=== PATIENT | female | born 1970 | race Caucasian/White ===

== ENCOUNTER 2019-06-20 17:28 | Outpatient (CLI) | payer BC | END 2019-06-20 17:29 | disposition critical access hospital (66) | LOC: EMS 17:28 | PROVIDERS: ATTEND Surgery | DX: R51 Headache (principal); R11.0 Nausea; R42 Dizziness and giddiness | CPT/HCPCS: A0425; A0429 ==

== ENCOUNTER 2019-06-20 17:53 | Emergency (ER) | payer BC ==
[2019-06-20] MEDS ORDERED: diphenhydrAMINE INJ 50 MG/ML VIAL IVP STA (18:00)
[2019-06-20] MEDS ORDERED: METOCLOPRAMIDE 10 MG/2 ML VIAL IVP STA (18:00)
--- NOTE | 2019-06-20 18:02 | ED Physician Documentation ---
PD HPI HEADACHE - Stated complaint Stated Complaint: GILMAN/NAUSEA/ DIZZY - History obtained from History obtained from: Patient - History of Present Illness Timing - onset: Today (48-year-old woman with history of TBI and migraines presents with a sudden onset frontal headache that started about an hour and a half ago while working at home. It is more severe than most of her headaches but not necessarily the worst headache of her life. She is nauseous and very anxious. She tried some Valium at home which was ineffective. She is been on amoxicillin for about 5 days for a dental infection. No fevers. No neck stiffness.) Review of Systems Ten Systems: 10 systems reviewed and negative Constitutional: denies: Fever, Chills Cardiac: denies: Chest pain / pressure, Palpitations Respiratory: denies: Dyspnea, Cough PD PAST MEDICAL HISTORY - Allergies Allergies/Adverse Reactions: Allergies Allergy/AdvReac Type Severity Reaction Status Date / Time clindamycin Allergy Unknown Verified 06/20/19 18:06 iodine Allergy Hives Verified 06/20/19 18:06 seafood Allergy Hives Uncoded 06/20/19 18:06 PD ED PE NORMAL - Vitals Vital signs reviewed: Yes - General General: Alert and oriented X 3, Other (She is crying and anxious and tearful) - HEENT HEENT: PERRL, EOMI - Neck Neck: Supple, no meningeal sign, No bony TTP - Cardiac Cardiac: RRR, No murmur - Respiratory Respiratory: No respiratory distress, Clear bilaterally - Abdomen Abdomen: Non tender - Back Back: No CVA TTP, No spinal TTP - Derm Derm: Normal color, Warm and dry - Extremities Extremities: No edema, No calf tenderness / cord - Neuro Neuro: Alert and oriented X 3, No motor deficit, No sensory deficit, Normal speech Results - Vitals Vitals: Vital Signs - 24 hr 06/20/19 17:59 Heart Rate 99 Respiratory 20 Rate Blood Pressure 142/120 H O2 Saturation 96 Oxygen O2 Source Room air - Labs Labs: Laboratory Tests 06/20/19 06/20/19 06/20/19 18:07 18:41 18:41 WBC 6.2 RBC 3.50 L Hgb 11.6 L Hct 33.9 L MCV 96.9 MCH 33.1 H MCHC 34.2 RDW 12.2 Plt Count 220 MPV 8.5 Neut # (Auto) 4.3 Lymph # (Auto) 1.3 L Bowie # (Auto) 0.5 Eos # (Auto) 0.1 Baso # (Auto) 0.1 Absolute Nucleated RBC 0.00 Nucleated RBC % 0.0 PT 12.4 INR 1.1 Sodium Potassium Chloride Carbon Dioxide Anion Gap BUN Creatinine Estimated GFR (MDRD) Glucose Calcium Total Bilirubin AST ALT Alkaline Phosphatase Total Protein Albumin Globulin Albumin/Globulin Ratio Lipase Urine Opiates Screen NEGATIVE Ur Oxycodone Screen NEGATIVE Urine Methadone Screen NEGATIVE Ur Propoxyphene Screen NEGATIVE Ur Barbiturates Screen NEGATIVE Ur Tricyclics Screen NEGATIVE Ur Phencyclidine Scrn NEGATIVE Ur Amphetamine Screen NEGATIVE U Methamphetamines Scrn NEGATIVE U Benzodiazepines Scrn POSITIVE H Urine Cocaine Screen NEGATIVE U Cannabinoids Screen POSITIVE H Ethyl Alcohol 06/20/19 18:41 WBC RBC Hgb Hct MCV MCH MCHC RDW Plt Count MPV Neut # (Auto) Lymph # (Auto) Bowie # (Auto) Eos # (Auto) Baso # (Auto) Absolute Nucleated RBC Nucleated RBC % PT INR Sodium 133 L Potassium 3.7 Chloride 99 L Carbon Dioxide 21 Anion Gap 13.0 BUN 10 Creatinine 0.8 Estimated GFR (MDRD) 77 L Glucose 100 Calcium 8.9 Total Bilirubin 0.5 AST 20 ALT 16 Alkaline Phosphatase 29 L Total Protein 6.5 L Albumin 3.7 Globulin 2.8 Albumin/Globulin Ratio 1.3 Lipase 33 Urine Opiates Screen Ur Oxycodone Screen Urine Methadone Screen Ur Propoxyphene Screen Ur Barbiturates Screen Ur Tricyclics Screen Ur Phencyclidine Scrn Ur Amphetamine Screen U Methamphetamines Scrn U Benzodiazepines Scrn Urine Cocaine Screen U Cannabinoids Screen Ethyl Alcohol < 5.0 PD MEDICAL DECISION MAKING - ED course ED course: 48-year-old woman presents with an acute severe headache, she does have a history of migraines. Started while painting and she thinks it may have been due to the fumes. She is also having a panic attack. After the administration of Benadryl and Reglan she was better with only minimal residual pain. Her head CT was negative. Her examination remained normal. Occult subarachnoid was considered but very unlikely at that juncture given the clinical circumstances. Departure - Departure Disposition: 01 Home, Self Care Clinical Impression: Migraine Qualifiers: Migraine type: without aura Status migrainosus presence: with status migrainosus Intractability: not intractable Qualified Code(s): G43.001 - Migraine without aura, not intractable, with status migrainosus Condition: Good Record reviewed to determine appropriate education?: Yes Instructions: ED Headache Migraine Comments: Return for any worsening symptoms, follow-up with your doctor regardless. Recheck blood pressure with your doctor, it is normal to go up with significant pain or anxiety so it is not too worrisome but should be rechecked when you are in your usual state of health.
[2019-06-20 18:19] LABS: MUDS CUTOFF CONCENTRATIONS CUTOFF CONC BELOW:
[2019-06-20 18:32] LABS: AMPHETAMINE SCREEN,URINE NEGATIVE (NEGATIVE); BENZODIAZEPINES SCREEN, URINE POSITIVE (NEGATIVE); COCAINE SCREEN URINE NEGATIVE (NEGATIVE); METHADONE SCREEN, URINE NEGATIVE (NEGATIVE); METHAMPHETAMINES SCREEN, URINE NEGATIVE (NEGATIVE); OPIATE SCREEN, URINE NEGATIVE (NEGATIVE); OXYCODONE SCREEN, URINE NEGATIVE (NEGATIVE); PROPOXYPHENE SCREEN, URINE NEGATIVE (NEGATIVE); TRICYCLIC ANTIDEPRESSANT,URINE NEGATIVE (NEGATIVE)
--- NOTE | 2019-06-20 18:41 | CT Report ---
Reason: headache Procedure Date: 06/20/2019 Accession Number: [id number] / [id number] Procedure: CT - HEAD WO CPT Code: FULL RESULT: EXAM: CT HEAD EXAM DATE: 06/20/2019 06:15 PM. CLINICAL HISTORY: Headache. COMPARISON: None. TECHNIQUE: Multiaxial CT images were obtained from the foramen magnum to the vertex. Reformats: Sagittal and coronal. IV contrast: None. In accordance with CT protocol optimization, one or more of the following dose reduction techniques were utilized for this exam: automated exposure control, adjustment of mA and/or KV based on patient size, or use of iterative reconstructive technique. FINDINGS: Parenchyma: No intraparenchymal hemorrhage. No evidence of mass, midline shift, or CT findings of infarction. Mo-white differentiation is distinct. Extraaxial Spaces: Normal for age. No subdural or epidural collections identified. Ventricles: Normal in size and position. Sinuses and Orbits: Imaged paranasal sinuses, orbits, and mastoids show no significant abnormality. Bones: No evidence of fracture or calvarial defect. Other: None. IMPRESSION: 1. Negative for an acute or focal intracranial abnormality. RADIA
[2019-06-20 18:48] LABS: BASOPHILS # (AUTO) 0.1 10^3/uL (0.0-0.1); BASOPHILS % (AUTO) 0.8 %; EOSINOPHILS # (AUTO) 0.1 10^3/uL (0.0-0.7); EOSINOPHILS % (AUTO) 1.1 %; HGB - HEMOGLOBIN 11.6 g/dL (12.0-16.0); LYMPHOCYTES # (AUTO) 1.3 10^3/uL (1.5-3.5); LYMPHOCYTES % (AUTO) 21.3 %; MEAN CORPUSCULAR HEMOGLOBIN 33.1 pg (27.0-31.0); MEAN CORPUSCULAR HGB CONC 34.2 g/dL (32.0-36.0); MEAN CORPUSCULAR VOLUME 96.9 fL (81.0-99.0); MEAN PLATELET VOLUME 8.5 fL (7.9-10.8); MONOCYTES # (AUTO) 0.5 10^3/uL (0.0-1.0); MONOCYTES % (AUTO) 7.4 %; NEUTROPHILS # (AUTO) 4.3 10^3/uL (1.5-6.6); NEUTROPHILS % (AUTO) 69.1 %; PLT - PLATELET COUNT 220 10^3/uL (130-450); RED CELL DISTRIBUTION WIDTH 12.2 % (12.0-15.0); WHITE BLOOD COUNT 6.2 x10^3/uL (4.8-10.8)
[2019-06-20 19:02] LABS: INR 1.1 (0.8-1.2); PT - PROTHROMBIN TIME 12.4 secs (9.9-12.6)
[2019-06-20 19:12] LABS: ALBUMIN 3.7 g/dL (3.2-5.5); ALBUMIN/GLOBULIN RATIO 1.3 (1.0-2.2); ALKALINE PHOSPHATASE 29 IU/L (42-121); ALT ALANINE AMINOTRANSFERASE 16 IU/L (10-60); AST ASPARTATE AMINOTRANSFERASE 20 IU/L (10-42); BILIRUBIN,TOTAL 0.5 mg/dL (0.2-1.0); BUN - BLOOD UREA NITROGEN 10 mg/dL (6-20); CALCIUM 8.9 mg/dL (8.5-10.3); CARBON DIOXIDE - CO2 21 mmol/L (21-32); CHLORIDE 99 mmol/L (101-111); CREATININE 0.8 mg/dL (0.4-1.0); GFR - MDRD 77 (>89); GLUCOSE 100 mg/dL (70-100); LIPASE 33 U/L (22-51); SODIUM 133 mmol/L (135-145); TOTAL PROTEIN 6.5 g/dL (6.7-8.2)
[2019-06-20 20:05] VITALS: BP 138/96
== END 2019-06-20 20:00 | disposition home or self-care (01) ==
LOC: ED 17:53
DX: G43.001 Migraine without aura, not intractable, with status migrainosus (principal); F41.0 Panic disorder [episodic paroxysmal anxiety]; Z87.820 Personal history of traumatic brain injury
CPT/HCPCS: 36415; 70450; 80053; 80320; 83690; 85025; 85610; 96374; 99284; J1200; J2765; 80306

== ENCOUNTER 2020-01-31 20:41 | Outpatient (CLI) | payer BC | END 2020-01-31 20:42 | disposition home or self-care (01) | LOC: COV 20:41 | PROVIDERS: ATTEND Family Medicine | DX: R50.9 Fever, unspecified (principal) ==

== ENCOUNTER 2020-09-29 08:00 | Outpatient (CLI) | payer BC ==
[2020-09-29 14:39] LABS: BASOPHILS % (AUTO) 0.6 %; EOSINOPHILS # (AUTO) 0.1 10^3/uL (0.0-0.7); EOSINOPHILS % (AUTO) 1.6 %; HGB - HEMOGLOBIN 14.4 g/dL (12.0-16.0); LYMPHOCYTES # (AUTO) 1.6 10^3/uL (1.5-3.5); LYMPHOCYTES % (AUTO) 24.3 %; MEAN CORPUSCULAR HEMOGLOBIN 34.3 pg (27.0-31.0); MEAN CORPUSCULAR HGB CONC 33.6 g/dL (32.0-36.0); MEAN CORPUSCULAR VOLUME 101.9 fL (81.0-99.0); MEAN PLATELET VOLUME 9.5 fL (7.9-10.8); MONOCYTES # (AUTO) 0.5 10^3/uL (0.0-1.0); MONOCYTES % (AUTO) 7.6 %; NEUTROPHILS # (AUTO) 4.2 10^3/uL (1.5-6.6); NEUTROPHILS % (AUTO) 65.6 %; PLT - PLATELET COUNT 274 10^3/uL (130-450); RED CELL DISTRIBUTION WIDTH 12.4 % (12.0-15.0); WHITE BLOOD COUNT 6.4 x10^3/uL (4.8-10.8)
[2020-09-29 15:26] LABS: % IRON SATURATION 23 % (20-50); ALBUMIN 4.2 g/dL (3.2-5.5); ALBUMIN/GLOBULIN RATIO 1.3 (1.0-2.2); ALKALINE PHOSPHATASE 40 IU/L (42-121); ALT ALANINE AMINOTRANSFERASE 19 IU/L (10-60); AST ASPARTATE AMINOTRANSFERASE 21 IU/L (10-42); BILIRUBIN,TOTAL 0.6 mg/dL (0.2-1.0); BUN - BLOOD UREA NITROGEN 15 mg/dL (6-20); CALCIUM 9.3 mg/dL (8.5-10.3); CARBON DIOXIDE - CO2 24 mmol/L (21-32); CHLORIDE 105 mmol/L (101-111); CHOL/HDL RATIO 3.4 (<4.4); CHOLESTEROL 176 mg/dL; CREATININE 0.8 mg/dL (0.4-1.0); GLUCOSE 103 mg/dL (70-100); HDL CHOLESTEROL 52 mg/dL; IRON 93 ug/dL (28-170); LDL CHOLESTEROL,CALCULATED 71 mg/dL; LDL/HDL RATIO 1.4 (<4.4); SODIUM 137 mmol/L (135-145); TOTAL IRON BINDING CAPACITY 398 ug/dL (250-450); TOTAL PROTEIN 7.5 g/dL (6.7-8.2); TRANSFERRIN 284 mg/dL (192-382); VLDL CHOLESTEROL 53 mg/dL
== END 2020-09-29 08:01 | disposition home or self-care (01) ==
LOC: LAB.S 08:00
PROVIDERS: ATTEND Registered Nurse
DX: G25.81 Restless legs syndrome (principal); F17.200 Nicotine dependence, unspecified, uncomplicated; Z78.0 Asymptomatic menopausal state; R53.83 Other fatigue; N94.3 Premenstrual tension syndrome
CPT/HCPCS: 36415; 80053; 80061; 82306; 82728; 83540; 83721; 84443; 84466; 85025

== ENCOUNTER 2020-12-31 08:52 | Outpatient (CLI) | payer BC ==
[2020-12-31 15:20] LABS: CHOLESTEROL 227 mg/dL; GLUCOSE,FASTING 111 mg/dL (70-100); HDL CHOLESTEROL 57 mg/dL; LDL CHOLESTEROL,CALCULATED 136 mg/dL; LDL/HDL RATIO 2.4 (<4.4); VLDL CHOLESTEROL 34 mg/dL
[2020-12-31 20:34] LABS: HEMOGLOBIN A1c% 5.7 % (4.27-6.07)
== END 2020-12-31 08:53 | disposition home or self-care (01) ==
LOC: LAB.S 08:52
PROVIDERS: ATTEND Obstetrics & Gynecology
DX: E78.5 Hyperlipidemia, unspecified (principal); R73.9 Hyperglycemia, unspecified; R79.9 Abnormal finding of blood chemistry, unspecified
CPT/HCPCS: 36415; 80061; 82607; 82746; 82947; 83036; 83721

== ENCOUNTER 2021-02-21 13:12 | Outpatient (CLI) | payer BC ==
--- NOTE | 2021-02-22 12:11 | Mammography Report ---
BILATERAL DIGITAL SCREENING MAMMOGRAM 3D/2D: 02/21/2021 CLINICAL: Family history of breast cancer. Comparison is made to exams dated: 05/03/2017 mammogram, 09/13/2018 mammogram, and 03/24/2016 mammogram - [facility]. There are scattered fibroglandular elements in both breasts. No significant masses, calcifications, or other findings are seen in either breast. There has been no significant interval change. IMPRESSION: NEGATIVE There is no mammographic evidence of malignancy. A 1 year screening mammogram is recommended. This exam was interpreted at Station ID: [id number]. NOTE: For mammograms, a report in lay terms will be sent to the patient. Approximately 15% of breast malignancies will not be visualized mammographically. In the management of a palpable breast mass, a negative mammogram must not discourage biopsy of a clinically suspicious lesion. Electronically Signed By: Vitaly Ramirez M.D. ar/penrad:02/22/2021 08:51:01 ACR BI-RADS Category 1: Negative 3341F PARENCHYMAL PATTERN: (A) - The breast(s) demonstrate(s) scattered fibroglandular densities. BI-RADS CATEGORY: (1) - 1 RECOMMENDATION: (ANNUAL) - Recommend routine annual screening mammography. [id number] 1 year screening LATERALITY: (B)
== END 2021-02-21 13:13 | disposition home or self-care (01) ==
LOC: DI.S 13:12
DX: Z12.31 Encounter for screening mammogram for malignant neoplasm of breast (principal); Z80.3 Family history of malignant neoplasm of breast

== ENCOUNTER 2021-03-11 08:00 | Outpatient (CLI) | payer BC ==
--- NOTE | 2021-03-11 16:46 | XRAY Report ---
PROCEDURE: Chest 2 View X-Ray INDICATIONS: HEMOPTYSIS/CONTINUOUS TABACCO ABUSE TECHNIQUE: 2 view(s) of the chest. COMPARISON: None. FINDINGS: Surgical changes and devices: None. Lungs and pleura: No pleural effusions or pneumothorax. Lungs are abnormal with pulmonary hyperexpa nsion, and yet no definite mass lesion or evidence of pneumonia is seen. It is noted that at the dist al first rib on the left there is asymmetric increased radiodensity than that on the right, which can be produced by differences in degenerative change but also a superimposed lung mass could produce th is appearance. See below. Mediastinum: Mediastinal contours are normal. Heart size is normal. Bones and chest wall: No suspicious bony abnormalities. Soft tissues appear unremarkable. IMPRESSION: Large lung volumes, suspect COPD. No lung mass or pneumonia found. Please note that ther e is asymmetric density overlying the distal first rib on the left, potentially a manifestation of a lung mass superimposed but most frequently this represents degenerative change. Given the history of hemoptysis and the potential for endobronchial mass as the underlying cause follow-up by noncontrast CT scanning likely is warranted in the near term. Reviewed by: Jay Butterfield MD on 03/11/2021 4:45 PM PDT Approved by: Jay Butterfield MD on 03/11/2021 4:45 PM PDT Station ID: [id number]
== END 2021-03-11 23:59 | disposition home or self-care (01) ==
LOC: DI.S 08:00
PROVIDERS: ATTEND Physician Assistant Medical
DX: R04.2 Hemoptysis (principal); R09.89 Other specified symptoms and signs involving the circulatory and respiratory systems; F17.200 Nicotine dependence, unspecified, uncomplicated; R91.8 Other nonspecific abnormal finding of lung field; Z20.822 Contact with and (suspected) exposure to COVID-19

== ENCOUNTER 2021-03-20 12:43 | Outpatient (CLI) | payer BC ==
--- NOTE | 2021-03-20 21:03 | CT Report ---
PROCEDURE: CHEST WO INDICATIONS: NEOPLASM OF UNSPECIFIED BEHAVIOR OF RESP SYSTEM TECHNIQUE: Noncontrast 5 mm thick sections acquired from the pulmonary apices to the posterior costophrenic angl es. 7 mm thick coronal and sagittal MIP reformats were then acquired. For radiation dose reduction, the following was used: automated exposure control, adjustment of mA and/or kV according to patient size. COMPARISON: Chest radiographs dated 03/11/2021 FINDINGS: Image quality: Excellent. Lungs and pleura: No acute air space opacities. No pleural effusions or pneumothorax. Central and peripheral airways are patent and normal in caliber. There is predominantly apical and centrilobular emphysematous changes. Mediastinum: Heart size is normal. Mild coronary vascular calcifications most prominently within th e left anterior descending artery. No pericardial effusion. No mediastinal adenopathy by size criter ia. Thoracic aorta and central pulmonary arteries are normal in size. Esophagus is normal in calibe r. No hiatal hernia. Bones and chest wall: No suspicious bony lesions. No vertebral body compression fractures. No axil katharina or supraclavicular adenopathy by size criteria. The thyroid is normal in size. Abdomen: Visualized upper abdominal solid organs and bowel loops appear normal in the absence of con trast. Mild atherosclerotic calcifications within the aorta. IMPRESSION: No evidence of suspicious nodule or mass. Findings on comparison radiographs likely favored overlappi ng chondral calcifications. Emphysema. Coronary vascular calcifications. Reviewed by: Moose Roberts DO on 03/20/2021 8:02 PM JORDAN Approved by: Moose Roberts DO on 03/20/2021 8:02 PM JORDAN Station ID: [id number]
== END 2021-03-20 12:44 | disposition home or self-care (01) ==
LOC: DI 12:43
PROVIDERS: ATTEND Registered Nurse
DX: J43.9 Emphysema, unspecified (principal); I25.84 Coronary atherosclerosis due to calcified coronary lesion

== ENCOUNTER 2022-02-05 10:01 | Outpatient (CLI) | payer BC ==
[2022-02-05 15:50] LABS: CALCIUM 9.4 mg/dL (8.5-10.3); CREATININE 0.7 mg/dL (0.4-1.0); POTASSIUM 4.1 mmol/L (3.5-5.0)
[2022-02-05 21:37] LABS: ESTIMATED AVERAGE GLUCOSE 117 mg/dL (70-100); HEMOGLOBIN A1c% 5.7 % (4.27-6.07)
== END 2022-02-05 10:02 | disposition home or self-care (01) ==
LOC: LAB.S 10:01
PROVIDERS: ATTEND Registered Nurse
DX: R73.9 Hyperglycemia, unspecified (principal)
CPT/HCPCS: 36415; 80048; 83036

== ENCOUNTER 2022-11-25 12:27 | Outpatient (CLI) | payer BC ==
--- NOTE | 2022-11-28 10:18 | Ultrasound Report ---
LIMITED ULTRASOUND OF LEFT BREAST: 11/25/2022 CLINICAL: Itchy nipples. Comparison is made to exams dated: 11/25/2022 mammogram, 02/21/2021 mammogram - [facility], 09/13/2018 mammogram, and 05/03/2017 mammogram - [facility]. Real-time ultrasound of the left breast retroareolar was performed. Mo scale images of the real-t jenn examination were reviewed. No significant abnormalities were seen sonographically in the left breast. IMPRESSION: NEGATIVE There is no sonographic evidence of malignancy. There is no abnormality seen in the left breast to correspond with the nipple abnormality in the sub- areolar depth, however, clinical followup is recommended. A 1 year screening mammogram is recommended. This exam was interpreted at Station ID: [id number]. Electronically Signed By: Vitaly rodriguez/ewelina:11/25/2022 14:01:19 Ultrasound BI-RADS: 1 Negative BI-RADS CATEGORY: (1) - 1 RECOMMENDATION: (ANNUAL) - Recommend routine annual screening mammography. [id number] 1 year screening LATERALITY: (B)
--- NOTE | 2022-11-28 10:18 | Mammography Report ---
BILATERAL DIGITAL DIAGNOSTIC MAMMOGRAM 3D/2D: 11/25/2022 CLINICAL: Bilateral itchy nipples. Comparison is made to exams dated: [facility], [facility], and 05/03/2017 mammogram - [facility]. There are scattered areas of fibroglandular density in both breasts (category b / 25%-50% glandular t issue). No significant masses, calcifications, or other findings are seen in either breast. IMPRESSION: INCOMPLETE: NEEDS ADDITIONAL IMAGING EVALUATION There is no abnormality seen in either breast to correspond with the nipple abnormality, however, ult rasound is recommended. This exam was interpreted at Station ID: [id number]. NOTE: For mammograms, a report in lay terms will be sent to the patient. Approximately 15% of breast malignancies will not be visualized mammographically. In the management of a palpable breast mass, a negative mammogram must not discourage biopsy of a clinically suspicious lesion. Electronically Signed By: Vitaly rodriguez/ewelina:11/25/2022 13:59:48 ACR BI-RADS Category 0: Incomplete 3340F PARENCHYMAL PATTERN: (A) - The breast(s) demonstrate(s) scattered fibroglandular densities. BI-RADS CATEGORY: (0) - 0 Ultrasound [id number] Immediate follow-up LATERALITY: (B)
--- NOTE | 2022-11-28 10:19 | Ultrasound Report ---
LIMITED ULTRASOUND OF RIGHT BREAST: 11/25/2022 CLINICAL: Itchy nipples. Comparison is made to exams dated: 11/25/2022 mammogram, 02/21/2021 mammogram - [facility], 09/13/2018 mammogram, 05/03/2017 mammogram, and 03/24/2016 mammogram - [facility]. Real-time ultrasound of the right breast retroareolar was performed. Mo scale images of the real-t jenn examination were reviewed. No significant abnormalities were seen sonographically in the right breast. IMPRESSION: NEGATIVE There is no sonographic evidence of malignancy. There is no abnormality seen in the right breast to correspond with the nipple abnormality in the sub -areolar depth, however, clinical followup is recommended. A 1 year screening mammogram is recommended. This exam was interpreted at Station ID: [id number]. Electronically Signed By: Vitaly rodriguez/ewelina:11/25/2022 14:00:48 Ultrasound BI-RADS: 1 Negative BI-RADS CATEGORY: (1) - 1 RECOMMENDATION: (ANNUAL) - Recommend routine annual screening mammography. [id number] 1 year screening LATERALITY: (B)
== END 2022-11-25 12:28 | disposition home or self-care (01) ==
LOC: DI 12:27
PROVIDERS: ATTEND Nurse Practitioner Family
DX: N64.59 Other signs and symptoms in breast (principal); L29.9 Pruritus, unspecified

== ENCOUNTER 2022-12-12 10:24 | Outpatient (CLI) | payer BC ==
[2022-12-12 14:14] LABS: BASOPHILS # (AUTO) 0.1 10^3/uL (0.0-0.1); BASOPHILS % (AUTO) 1.1 %; EOSINOPHILS # (AUTO) 0.1 10^3/uL (0.0-0.7); EOSINOPHILS % (AUTO) 2.3 %; HCT - HEMATOCRIT 41.4 % (37.0-47.0); HGB - HEMOGLOBIN 13.6 g/dL (12.0-16.0); LYMPHOCYTES # (AUTO) 1.6 10^3/uL (1.5-3.5); LYMPHOCYTES % (AUTO) 26.4 %; MEAN CORPUSCULAR HEMOGLOBIN 34.1 pg (27.0-31.0); MEAN CORPUSCULAR HGB CONC 32.9 g/dL (32.0-36.0); MEAN CORPUSCULAR VOLUME 103.8 fL (81.0-99.0); MEAN PLATELET VOLUME 9.2 fL (7.9-10.8); MONOCYTES # (AUTO) 0.6 10^3/uL (0.0-1.0); MONOCYTES % (AUTO) 9.9 %; NEUTROPHILS # (AUTO) 3.7 10^3/uL (1.5-6.6); NEUTROPHILS % (AUTO) 60.1 %; PLT - PLATELET COUNT 273 10^3/uL (130-450); RED BLOOD COUNT 3.99 10^6/uL (4.20-5.40); RED CELL DISTRIBUTION WIDTH 11.9 % (12.0-15.0); WHITE BLOOD COUNT 6.2 x10^3/uL (4.8-10.8)
[2022-12-12 14:49] LABS: THYROID STIMULATING HORMONE 2.22 uIU/mL (0.34-5.60)
[2022-12-12 22:02] LABS: ESTIMATED AVERAGE GLUCOSE 111 mg/dL (70-100); HEMOGLOBIN A1c% 5.5 % (4.27-6.07)
[2022-12-13 18:13] LABS: ALBUMIN 4.1 g/dL (3.2-5.5); ALBUMIN/GLOBULIN RATIO 1.3 (1.0-2.2); ALKALINE PHOSPHATASE 34 IU/L (42-121); ALT ALANINE AMINOTRANSFERASE 22 IU/L (10-60); AST ASPARTATE AMINOTRANSFERASE 25 IU/L (10-42); BILIRUBIN,TOTAL 0.7 mg/dL (0.2-1.0); BUN - BLOOD UREA NITROGEN 11 mg/dL (6-20); CALCIUM 10.5 mg/dL (8.5-10.3); CARBON DIOXIDE - CO2 25 mmol/L (21-32); CHLORIDE 102 mmol/L (101-111); CHOL/HDL RATIO 3.9 (<4.4); CHOLESTEROL 179 mg/dL; CREATININE 0.7 mg/dL (0.4-1.0); GFR - MDRD 88 (>89); GLUCOSE 106 mg/dL (70-100); HDL CHOLESTEROL 46 mg/dL; LDL CHOLESTEROL,CALCULATED 79 mg/dL; LDL/HDL RATIO 1.7 (<4.4); POTASSIUM 4.4 mmol/L (3.5-5.0); SODIUM 140 mmol/L (135-145); TOTAL PROTEIN 7.3 g/dL (6.7-8.2); TRIGLYCERIDES 268 mg/dL; VLDL CHOLESTEROL 54 mg/dL
== END 2022-12-12 10:25 | disposition home or self-care (01) ==
LOC: LAB.S 10:24
PROVIDERS: ATTEND Nurse Practitioner Family
DX: Z00.00 Encounter for general adult medical examination without abnormal findings (principal); Z13.220 Encounter for screening for lipoid disorders; Z13.1 Encounter for screening for diabetes mellitus; Z13.29 Encounter for screening for other suspected endocrine disorder
CPT/HCPCS: 36415; 80053; 80061; 83036; 83721; 84443; 85025

== ENCOUNTER 2023-08-09 07:04 | Day surgery (SDC) | payer BC ==
[2023-08-09] MEDS ORDERED: LACTATED RINGERS 1,000 ML IV ONE ×2 (07:33→09:40)
[2023-08-09 07:38] LABS: HCG UR QUAL NEGATIVE
[2023-08-09] MEDS ORDERED: PROPOFOL 500 MG/50 ML 500 MG/50 ML VIAL ONE (08:05)
--- NOTE | 2023-08-09 08:24 | ANESTHESIA ---
Pre-Anesthesia VS, & Labs - Diagnosis screening, history of polyps, family history of colon cancer - Procedure coplonoscopy for screening Vital Signs: Temp Pulse Resp BP Pulse Ox O2 Flow Rate 36.2 C L 75 14 125/79 97 08/09/23 07:26 08/09/23 07:26 08/09/23 07:26 08/09/23 07:26 08/09/23 07:26 Height: 5 ft 10 in Weight (kg): 69.7 kg Body Mass Index: 22.0 BMI Classification: Normal - NPO Other (prep last at 5am) - Is Patient ?: No Home Medications and Allergies Home Medications: Ambulatory Orders Albuterol Sulfate [Proventil Hfa] 2 inh .ROUTE DAILY PRN 08/09/23 Estrogen,Con/M-Progest Acet [Prempro 0.3 mg-1.5 mg Tablet] 1 each PO DAILY 08/09/23 Fluticasone [Flonase] 1 sprays WILLIS DAILY 08/09/23 valACYclovir [Valtrex] 500 mg PO DAILY 08/09/23 Albuterol Sulfate [Proventil Hfa] 2 inh .ROUTE DAILY PRN 08/09/23 Estrogen,Con/M-Progest Acet [Prempro 0.3 mg-1.5 mg Tablet] 1 each PO DAILY 08/09/23 Fluticasone [Flonase] 1 sprays WILLIS DAILY 08/09/23 valACYclovir [Valtrex] 500 mg PO DAILY 08/09/23 Allergies/Adverse Reactions: Allergies Allergy/AdvReac Type Severity Reaction Status Date / Time clindamycin Allergy Unknown Verified 05/21/22 11:11 iodine Allergy Hives Verified 05/21/22 11:11 seafood Allergy Hives Uncoded 05/21/22 11:11 Anes History & Medical History - Anesthetic History Anesthesia Complications: reports: No previous complications - Medical History Cardiovascular: reports: None Pulmonary: reports: Asthma, COPD Gastrointestinal: reports: None Urinary: reports: None Neuro: reports: Migraines Musculoskeletal: reports: None Endocrine/Autoimmune: reports: None Skin: reports: None Smoking Status: Current every day smoker Psychosocial: reports: Alcohol (2-3 times a week), Cannabis (cbd and elixer and smoker) History of Cancer?: No - Surgical History Orthopedic: reports: Other (hand surgery) Exam General: Alert, Oriented x3 Neck Mobility: Normal Mallampati classification: II Thyromental Distance: greater than 6 cm Respiratory: Lungs clear Cardiovascular: Regular rate, Normal S1, Normal S2 Plan Anesthesia Type: Total IV Consent for Procedure(s) Verified and Reviewed: Yes Code Status: Attempt Resuscitation ASA classification: 2-Mild systemic disease Is this case an emergency?: No
[2023-08-09] MEDS ORDERED: MIDAZOLAM 2 MG/2 ML VIAL ONE (08:26)
--- NOTE | 2023-08-09 09:53 | ANESTHESIA POST OP EVALUATION ---
Anesthesia Post Eval - Post Anesthesia Eval Vitals: Last Vital Signs Temp 36.5 C 08/09/23 09:40 Pulse 81 08/09/23 09:40 Resp 16 08/09/23 09:40 BP 88/51 L 08/09/23 09:40 Pulse Ox 98 08/09/23 09:40 O2 Flow Rate CV Function Including HR & BP: Stable Pain Control: Satisfactory Nausea & Vomiting: Negative Mental Status: Baseline Respiratory Status: Airway Patent Hydration Status: Satisfactory Anesthesia Complications: None
[2023-08-09 10:35] VITALS: BP 118/69; O2SAT 98
== END 2023-08-09 07:05 | disposition home or self-care (01) ==
LOC: SDS 07:04
PROVIDERS: ATTEND Surgery
DX: Z12.11 Encounter for screening for malignant neoplasm of colon (principal); K57.30 Diverticulosis of large intestine without perforation or abscess without bleeding; K64.1 Second degree hemorrhoids; J44.9 Chronic obstructive pulmonary disease, unspecified; F17.200 Nicotine dependence, unspecified, uncomplicated; Z32.02 Encounter for pregnancy test, result negative; Z80.0 Family history of malignant neoplasm of digestive organs; Z86.010 Personal history of colon polyps
CPT/HCPCS: 45378; 81025; J7120

== ENCOUNTER 2023-08-26 08:00 | Outpatient (CLI) | payer BC | END 2023-08-26 23:59 | disposition home or self-care (01) | LOC: LAB.S 08:00 | PROVIDERS: ATTEND Emergency Medicine | DX: B00.1 Herpesviral vesicular dermatitis (principal) | CPT/HCPCS: 87255 ==

== ENCOUNTER 2024-07-22 08:00 | Outpatient (CLI) | payer BC ==
--- NOTE | 2024-07-24 15:30 | Mammography Report ---
BILATERAL DIGITAL SCREENING MAMMOGRAM 3D/2D: 07/22/2024 CLINICAL: Routine screening. Family history of breast cancer. Comparison is made to exams dated: 11/25/2022 mammogram - [facility], 09/13/2018 [facility], 05/03/2017 mammogram, and 03/24/2016 mammogram - [facility]. There are scattered areas of fibroglandular density (category b / 25%-50% glandular tissue). No significant masses, calcifications, or other findings are seen in either breast. There has been no significant interval change. IMPRESSION: NEGATIVE There is no mammographic evidence of malignancy. A 1 year screening mammogram is recommended. Based on the Tyrer Cuzick model (a risk assessment model) the patient's lifetime risk is 16.6% and he r 10 year risk is 4.5%. According to the ACR, ACS, and NCCN guidelines, an annual breast MRI exam luigi ng with mammogram is recommended if the patient's lifetime risk is 20% or greater. This exam was interpreted at Station ID: [id number]. NOTE: For mammograms, a report in lay terms will be sent to the patient. Approximately 15% of breast malignancies will not be visualized mammographically. In the management of a palpable breast mass, a negative mammogram must not discourage biopsy of a clinically suspicious lesion. Electronically Signed By: Bethany Slater M.D., Ph.D. eb/penrad:07/23/2024 10:38:16 ACR BI-RADS Category 1: Negative 3341F PARENCHYMAL PATTERN: (A) - The breast(s) demonstrate(s) scattered fibroglandular densities. BI-RADS CATEGORY: (1) - 1 RECOMMENDATION: (ANNUAL) - Recommend routine annual screening mammography. [id number] 1 year screening LATERALITY: (B)
== END 2024-07-22 23:59 | disposition home or self-care (01) ==
LOC: DI.S 08:00
PROVIDERS: ATTEND Nurse Practitioner Acute Care
DX: Z12.31 Encounter for screening mammogram for malignant neoplasm of breast (principal); Z80.3 Family history of malignant neoplasm of breast

== ENCOUNTER 2024-07-22 08:00 | Outpatient (CLI) | payer BC ==
--- NOTE | 2024-07-23 15:05 | XRAY Report ---
PROCEDURE: Chest 2V INDICATIONS: COSTOCHONDRITIS, RECURRENT TECHNIQUE: 2 views of the chest were acquired. COMPARISON: Chest x-ray 05/21/2022 FINDINGS: Surgical changes and devices: None. Lungs and pleura: No pleural effusions or pneumothorax. Lungs are clear. Mediastinum: Mediastinal contours appear normal. Heart size is normal. Bones and chest wall: No suspicious bony lesions. Overlying soft tissues appear unremarkable. IMPRESSION: No acute cardiopulmonary process. Reviewed by: Yvonne Contreras MD on 07/23/2024 3:04 PM PDT Approved by: Yvonne Contreras MD on 07/23/2024 3:04 PM PDT Station ID: [id number]
== END 2024-07-22 23:59 | disposition home or self-care (01) ==
LOC: DI.S 08:00
PROVIDERS: ATTEND Physician Assistant
DX: M94.0 Chondrocostal junction syndrome [Tietze] (principal); M47.812 Spondylosis without myelopathy or radiculopathy, cervical region

== ENCOUNTER 2024-07-22 14:09 | Outpatient (CLI) | payer BC ==
--- NOTE | 2024-07-22 20:03 | XRAY Report ---
PROCEDURE: Cervical Spine 2-3V INDICATIONS: NECK PAIN TECHNIQUE: 3 views of the cervical spine were acquired. COMPARISON: None. FINDINGS: Bones: No acute fractures or dislocations to the T1 level. The lateral masses of C1 appear intact o n the odontoid view. No suspicious bony lesions. There is straightening of the normal cervical lord osis. Disc space narrowing degenerative endplate changes are most notable at the C5-6 level. Multilev el uncovertebral joint and facet hypertrophy are seen. Soft tissues: No prevertebral soft tissue swelling. IMPRESSION: No acute displaced fracture or traumatic subluxation. Mild multilevel cervical spondylosis from Reviewed by: Vitaly Ramirez MD on 07/22/2024 8:01 PM PDT Approved by: Vitaly Ramirez MD on 07/22/2024 8:01 PM PDT Station ID: [id number]
== END 2024-07-22 14:10 | disposition home or self-care (01) ==
LOC: DI.S 14:09
PROVIDERS: ATTEND Nurse Practitioner Acute Care
DX: M47.812 Spondylosis without myelopathy or radiculopathy, cervical region (principal)

== ENCOUNTER 2024-07-29 10:40 | Outpatient (CLI) | payer BC ==
[2024-07-29 15:18] LABS: BASOPHILS # (AUTO) 0.1 10^3/uL (0.0-0.1); EOSINOPHILS # (AUTO) 0.2 10^3/uL (0.0-0.7); EOSINOPHILS % (AUTO) 2.4 %; HCT - HEMATOCRIT 44.4 % (37.0-47.0); HGB - HEMOGLOBIN 14.9 g/dL (12.0-16.0); LYMPHOCYTES % (AUTO) 28.1 %; MEAN CORPUSCULAR HEMOGLOBIN 34.7 pg (27.0-31.0); MEAN CORPUSCULAR HGB CONC 33.6 g/dL (32.0-36.0); MEAN CORPUSCULAR VOLUME 103.5 fL (81.0-99.0); MEAN PLATELET VOLUME 9.5 fL (7.9-10.8); MONOCYTES # (AUTO) 0.6 10^3/uL (0.0-1.0); MONOCYTES % (AUTO) 8.3 %; NEUTROPHILS # (AUTO) 4.3 10^3/uL (1.5-6.6); NEUTROPHILS % (AUTO) 59.9 %; PLT - PLATELET COUNT 296 10^3/uL (130-450); RED BLOOD COUNT 4.29 10^6/uL (4.20-5.40); RED CELL DISTRIBUTION WIDTH 12.2 % (12.0-15.0); WHITE BLOOD COUNT 7.2 x10^3/uL (4.8-10.8)
[2024-07-29 15:44] LABS: THYROID STIMULATING HORMONE 1.79 uIU/mL (0.34-5.60)
[2024-07-29 15:48] LABS: ALBUMIN 4.4 g/dL (3.2-5.5); ALBUMIN/GLOBULIN RATIO 1.5 (1.0-2.2); ALKALINE PHOSPHATASE 48 IU/L (42-121); ALT ALANINE AMINOTRANSFERASE 18 IU/L (10-60); AST ASPARTATE AMINOTRANSFERASE 22 IU/L (10-42); BILIRUBIN,TOTAL 0.5 mg/dL (0.2-1.0); BUN - BLOOD UREA NITROGEN 12 mg/dL (6-20); CALCIUM 9.8 mg/dL (8.5-10.3); CARBON DIOXIDE - CO2 27 mmol/L (21-32); CHLORIDE 104 mmol/L (101-111); CHOL/HDL RATIO 3.7 (<4.4); CHOLESTEROL 186 mg/dL; CREATININE 0.8 mg/dL (0.6-1.3); GFR - MDRD 75 (>89); GLUCOSE 103 mg/dL (74-104); HDL CHOLESTEROL 50 mg/dL; LDL CHOLESTEROL,CALCULATED 93 mg/dL; LDL/HDL RATIO 1.9 (<4.4); SODIUM 138 mmol/L (135-145); TOTAL PROTEIN 7.4 g/dL (6.4-8.9); TRIGLYCERIDES 215 mg/dL; VLDL CHOLESTEROL 43 mg/dL
== END 2024-07-29 10:41 | disposition home or self-care (01) ==
LOC: LAB.S 10:40
PROVIDERS: ATTEND Nurse Practitioner Acute Care
DX: Z13.228 Encounter for screening for other metabolic disorders (principal); Z13.220 Encounter for screening for lipoid disorders; Z13.29 Encounter for screening for other suspected endocrine disorder; Z13.0 Encounter for screening for diseases of the blood and blood-forming organs and certain disorders involving the immune mechanism
CPT/HCPCS: 36415; 80053; 80061; 83721; 84443; 85025